=== PATIENT | male | born 1980 | race Caucasian/White ===

== ENCOUNTER 2023-02-27 13:57 | Emergency (ER) | payer OTHER ==
[2023-02-27] MEDS ORDERED: Lidocaine 1% 5 ML VIAL INJECT ONE (15:10)
[2023-02-27] MEDS ORDERED: Diphtheria,Pertussis(Acell),Tetanus Vaccine 0.5 ML Syringe IM ONE (15:10)
[2023-02-27] MEDS ORDERED: Octyl 2-Cyanoacrylate 1 g/1 mL 1 APPLIC PEN TOP ONE (15:50)
[2023-02-27] MEDS ORDERED: Cephalexin 500 MG Cap PO ONE (16:05)
== END 2023-02-27 16:49 | disposition home or self-care (01) ==
LOC: MW.ED 13:57
DX: S61.411A Laceration without foreign body of right hand, initial encounter (principal); S61.212A Laceration without foreign body of right middle finger without damage to nail, initial encounter; S71.111A Laceration without foreign body, right thigh, initial encounter; Z88.1 Allergy status to other antibiotic agents; Z23 Encounter for immunization; W26.8XXA Contact with other sharp object(s), not elsewhere classified, initial encounter
CPT/HCPCS: 12004; 90471; 90715; 99282; A9270; 99283; J3490

== ENCOUNTER 2023-10-13 10:25 | Day surgery (SDC) | payer OTHER ==
[~2023-10-13 10:25] MED LIST: Lactated Ringers 1,000 ML IV SCH; Sodium Chloride 0.9% 10 ML Syringe FLUSH PRN; Sodium Chloride 0.9% 2.5 ML Syringe FLUSH PRN; Sodium Chloride 0.9% 20 ML SDV IV PRN
[2023-10-13] MEDS ORDERED: propofoL 50 ML ONE (10:40)
[2023-10-13] MEDS ORDERED: dexmedeTOMIDine HCl 200 MCG/2 ML SDV ONE (11:32)
== END 2023-10-13 14:00 | disposition home or self-care (01) ==
LOC: MW.SDS 10:25
PROVIDERS: ATTEND Surgery
DX: Z12.11 Encounter for screening for malignant neoplasm of colon (principal); K57.90 Diverticulosis of intestine, part unspecified, without perforation or abscess without bleeding; F32.A Depression, unspecified; Z79.899 Other long term (current) drug therapy; Z98.890 Other specified postprocedural states; Z88.1 Allergy status to other antibiotic agents
CPT/HCPCS: 45378; J2704; J7120; J3490